=== PATIENT | male | born 1995 | race Caucasian/White ===

== ENCOUNTER 2020-06-22 17:45 | Emergency (ER) | payer BC ==
[~2020-06-22] VITALS: Ht 182.9 cm; Wt 88.5 kg
[2020-06-22] MEDS ORDERED: IBUPROFEN 400 MG TAB ONE (18:44)
[2020-06-22] MEDS ORDERED: IBUPROFEN 400 MG TAB PO ONE (18:45)
--- NOTE | 2020-06-22 19:04 | Diagnostic Imaging Report ---
X-ray 3 views of the small finger. HISTORY: Pain. COMPARISON: None available. FINDINGS/IMPRESSION: There is dorsal dislocation of the small finger proximal interphalangeal joint. No associated fracture identified. There is mild regional soft tissue swelling. Signed by: Nay Nguyen MD on 06/22/2020 7:01 PM
--- NOTE | 2020-06-22 19:06 | Diagnostic Imaging Report ---
X-ray 2 views of the small finger. HISTORY: Pain. COMPARISON: Earlier same day radiograph. FINDINGS/IMPRESSION: There has been interval reduction of the dislocated small finger proximal interphalangeal joint. No associated fracture identified. Signed by: Nay Nguyen MD on 06/22/2020 7:03 PM
[2020-06-22] MEDS ORDERED: MOTRIN800 MG PO (19:07)
--- NOTE | 2020-06-22 19:13 | Emergency Department Note ---
History of Present Illnes History of Present Illness Chief Complaint: rgt 5th pain s/p extended while playing basketball History of Present Illness This is a 24 year old male. was doing well prior to this. Historian: Patient, Friend Arrival Mode: Car History limited by: condition of the patient (normal) Videotape Recording Engineer Required: No Onset (how long ago): hour(s) (1.5) Location: see above Quality: sharp Radiation: Reports non-radiation Severity: severe Onset quality: sudden Duration (how long): hour(s) (1.5) Timing of current episode: constant Progression: unchanged Chronicity: new Context: Reports trauma/injury Relieving factors: none Exacerbating factors: movement Associated symptoms: Reports denies other symptoms Treatments prior to arrival: none Past Medical/Family History Physician Review I have reviewed the patient's past medical and family history. Any updates have been documented here. Past Medical History Recent Fever: No Clinical Suspicion of Infectio: No New/Unexplained Change in Ment: No Past Medical History: None Past Surgical History: None Social History Smoking Cessation: Unknown if ever smoked Counseling Performed: No Alcohol Use: None Any Illegal Drug Use: No TB Exposure/Symptoms: No Physically hurt or threatened: No Family History Family history of heart diseas: No Other Any Pre-Existing Lines (PICC,: No Is patient up to date on immun: No Review of Systems Review of Systems Constitutional: Reports no symptoms EENTM: Reports no symptoms Cardiovascular: Reports no symptoms Respiratory: Reports no symptoms Gastrointestinal: Reports no symptoms Genitourinary: Reports no symptoms Musculoskeletal: Reports as per HPI Integumentary: Reports no symptoms Neurological: Reports no symptoms Psychological: Reports no symptoms Endocrine: Reports no symptoms Hematological/Lymphatic: Reports no symptoms Review of other systems: All other systems negative Physical Exam Related Data Allergies: Coded Allergies: No Known Allergies (Unverified , 06/22/20) Triage Vital Signs Vital Signs Date Time Temp Pulse Resp B/P (MAP) Pulse Ox O2 Delivery O2 Flow Rate FiO2 06/22/20 17:48 98.1 77 16 141/77 100 Room Air Vital signs reviewed: Yes Physical Exam CONSTITUTIONAL Constitutional: Present well-developed, Present well-nourished HENT HENT: Present normocephalic, Present atraumatic, Present oropharynx clear/moist, Present nose normal HENT L/R: Present left ext ear normal, Present right ext ear normal EYES Eyes: Reports PERRL, Reports conjunctivae normal NECK Neck: Present ROM normal PULMONARY Pulmonary: Present effort normal, Present breath sounds normal CARDIOVASCULAR Cardiovascular: Present regular rhythm, Present heart sounds normal, Present capillary refill normal, Present normal rate GASTROINTESTINAL Abdominal: Present soft, Present nontender, Present bowel sounds normal GENITOURINARY Genitourinary: Present exam deferred SKIN Skin: Present warm, Present dry MUSCULOSKELETAL Musculoskeletal: Present tenderness (left 5th finger digit tenderness/ decreased farom), Present swelling NEUROLOGICAL Neurological: Present alert, Present oriented x 3, Present no gross motor or sensory deficits PSYCHOLOGICAL Psychological: Present mood/affect normal, Present judgement normal Results Imaging Imaging results reviewed: Yes Impressions [place] [id number] Patient Name: NEIL YATES MR #: [id number] : 1995 Age/Sex: 24/M Req #: [id number] Adm Physician: Ordered by: BILLY SALEEM Report #: [id number] Location: [facility] Room/Bed: Procedure: [id number] HOPD/FINGER RT - HOPD Exam Date: 06/22/20 Exam Time: 180 REPORT STATUS: Signed X-ray 3 views of the small finger. HISTORY: Pain. COMPARISON: None available. FINDINGS/IMPRESSION: There is dorsal dislocation of the small finger proximal interphalangeal joint. No associated fracture identified. There is mild regional soft tissue swelling. Signed by: Mike Nguyen MD on 06/22/2020 7:01 PM Dictated By: MIKE NGUYEN MD 00 Transcribed By: CARMEN on 06/22/201900 COPY TO: BILLY SALEEM~ [place] [address] Patient Name: NELI YATES MR #: [id number] : 1995 Age/Sex: 24/M Req #: [id number] Adm Physician: Ordered by: BILLY SALEEM Report #: [id number] Location: [facility] Room/Bed: Procedure: [id number] HOPD/FINGER RT - HOPD Exam Date: 06/22/20 Exam Time: 1852 REPORT STATUS: Signed X-ray 2 views of the small finger. HISTORY: Pain. COMPARISON: Earlier same day radiograph. FINDINGS/IMPRESSION: There has been interval reduction of the dislocated small finger proximal interphalangeal joint. No associated fracture identified. Signed by: Mike Nguyen MD on 06/22/2020 7:03 PM Dictated By: MIKE NGUYEN MD 02 Transcribed By: CARMEN on 06/22/201902 COPY TO: BILLY SALEEM~ Procedures Orthopedic Joint Reduction Joint: Joint #1 Time out performed: Yes Side: right Joint reduction location: finger Technique used: traction/counter-traction Post-reduction neuor exam: intact Post-reduction vascular exam: intact Post-reduction xrays obtained: Yes Xray results: reduced Splint applied: Yes Patient tolerated procedure: well Assessment & Plan Medical Decision Making MDM fracture, dislocation, sprain Assessment & Plan Final Impression: (1) Finger dislocation Depart Disposition: HOME, SELF-CARE Last Vital Signs Date Time Temp Pulse Resp B/P (MAP) Pulse Ox O2 Delivery O2 Flow Rate FiO2 06/22/20 17:48 98.1 77 16 141/77 100 Room Air Home Meds Active Scripts Ibuprofen (MOTRIN) 800 Mg Tab, 800 MG PO Q6H PRN for MODERATE PAIN (4-6), #30 TAB Prov:BILLY SALEEM 06/22/20 Medications in the ED Ibuprofen 800 mg STK-MED ONCE .ROUTE ; Start 06/22/20 at 18:44; Stop 06/22/20 at 18:37; Status DC Ibuprofen 800 mg ONCE ONCE PO Last administered on 06/22/20at 18:40; Admin Dose 800 MG; Start 06/22/20 at 18:45; Stop 06/22/20 at 18:46; Status UNV BILLY SALEEM Jun 22, 2020 19:13
== END 2020-06-22 19:26 | disposition home or self-care (01) ==
LOC: FSED 18:05
DX: S63.286A Dislocation of proximal interphalangeal joint of right little finger, initial encounter (principal); Y93.67 Activity, basketball; Y92.310 Basketball court as the place of occurrence of the external cause
CPT/HCPCS: 99283